=== PATIENT | male | born 1960 | race Caucasian/White ===

== ENCOUNTER → 2016-05-13 | Outpatient (CLI) | payer BC ==
--- NOTE | 2016-05-13 08:34 | CTL ---
EXAMINATION TYPE: CT Low Dose lung cancer screening DATE OF EXAM ORDERED: 05/13/2016 7:51 AM HISTORY: 56-year-old male personal history of tobacco use. Lung cancer screening CT DLP: 106.[address] CTDI: 2.7 mGy Automated exposure control for dose reduction was used. SCREENING VISIT: Baseline COMPARISON: None TECHNIQUE: Low dose computed tomography scan was performed through the chest at 1 mm thick sections a nd reconstructed images in the coronal plane at 1 mm thick sections. Low-dose radiation protocol was utilized. Coronal and sagittal reconstructions performed. CT DIAGNOSTIC QUALITY: Satisfactory FINDINGS: The heart is normal size without pericardial effusion. Aorta is normal caliber with mild atherosclerotic arch calcifications and conventional arch vessel br anching anatomy. Scattered nonenlarged mediastinal lymph nodes measuring up to 6 mm. There is also mild bilateral gyne comastia incidentally noted. There is minimal biapical pleural parenchymal scarring. Very mild centrilobular emphysema seen in the upper lungs. No consolidation or pleural effusion. No suspicious pulmonary nodule or mass. Visualized upper abdomen shows no gross abnormality. Bones: No osseous destructive process. IMPRESSION: 1. Lung RADS 1 - negative; no pulmonary nodule seen. 2. Very mild centrilobular emphysema. RECOMMENDATION: 1. Continue with annual LDCT for lung cancer screening. 2. Smoking cessation. CT LUNG RAD: Lung-Rad 1 Negative
== END | disposition home or self-care (01) ==
LOC: RADCTMAIN 07:19
PROVIDERS: ATTEND Family Medicine
DX: Z12.2 Encounter for screening for malignant neoplasm of respiratory organs (principal); J43.9 Emphysema, unspecified; Z87.891 Personal history of nicotine dependence

== ENCOUNTER → 2022-03-22 | Outpatient (CLI) | payer BC ==
--- NOTE | 2022-03-22 08:44 | CTL ---
EXAMINATION TYPE: CT Low Dose Lung DATE OF EXAM ORDERED: 03/22/2022 HISTORY: Long-term tobacco use. Lung cancer screening CT DLP: 131.[address] CTDI: 3.2 mGy Automated exposure control for dose reduction was used. SCREENING VISIT: First after baseline COMPARISON: Prior study 2016 TECHNIQUE: Low dose computed tomography scan was performed through the chest at 1 mm thick sections a nd reconstructed images in multiple planes at 1 mm and [address] DIAGNOSTIC QUALITY: Satisfactory FINDINGS: LUNG NODULES: Present, detailed below: Few scattered small nodules redemonstrated. Stable 4 x 2 mm peripheral right middle lobe nodule axial image 185. Stable 3 to 4 mm right middle lobe nodule axial image 156. No new or enlarging greater than 5 mm pulmonary nodules. LUNGS: COPD: Severity: Mild Fibrosis: Severity: Minimal Lymph nodes: No greater than 1.0 cm Other findings: None RIGHT PLEURAL SPACE: Effusion: None Calcification: None Thickening: None Pneumothorax: None LEFT PLEURAL SPACE: Effusion: None Calcification: None Thickening: None Pneumothorax: None HEART: Heart Size: Normal Coronary Calcification: Moderate Pericardial Effusion: None OTHER FINDINGS: Upper abdomen: None Bony thorax: Slight S-shaped scoliosis redemonstrated Supraclavicular region : None Other: Small degree of bilateral gynecomastia again seen. IMPRESSION: Mild emphysematous change with few small stable nodules. CT LUNG RAD AND CT CHEST RECOMMENDATION: Lung-Rad 2 Benign Appearance or Behavior: Continue annual sc reening with LDCT in 12 months. S Modifier (other clinically significant findings): None
== END | disposition home or self-care (01) ==
LOC: RADCTMAIN 07:54
PROVIDERS: ATTEND Family Medicine
DX: Z12.2 Encounter for screening for malignant neoplasm of respiratory organs (principal); J43.9 Emphysema, unspecified; R91.8 Other nonspecific abnormal finding of lung field; Z87.891 Personal history of nicotine dependence
CPT/HCPCS: 71271

== ENCOUNTER → 2023-03-31 | Outpatient (CLI) | payer BC ==
--- NOTE | 2023-03-31 08:28 | CTL ---
EXAMINATION TYPE: CT Low Dose Lung DATE OF EXAM: 03/31/2023 6:56 AM CLINICAL INDICATION:Male, 63 years old with history of F17.210 nicotine dependence; nicotine dependen ce , history of tobacco use. COMPARISON: None. TECHNIQUE: Multiple axial non-contrast scans were obtained from approximately the lung apices through the upper abdomen. Coronal and sagittal reformatted images were obtained. Low dose technique was uti lized. CT DLP: 136 mGycm, Automated exposure control for dose reduction was used. CT Contrast: Contrast used: None Oral contrast used: None FINDINGS: ======== Lack of intravenous contrast and low dose technique limits the evaluation of the vascular and soft ti ssue structures. LUNGS: No evidence of pulmonary fibrosis. No evidence of focal consolidation, pneumothorax or pleural effusion. Mild centrilobular emphysema changes throughout the lungs. Nodules: RUL: 2 mm series 3 image 55. RML: 4 mm series 3 image 163, 4 mm series 3 image 196 RLL: None. DWAIN: 3 mm series 3 image 178r LLL: None. AIRWAY: Patent and unremarkable. HEART: Size within normal limits. Mild coronary artery calcifications. MEDIASTINUM: No gross evidence of adenopathy. VASCULATURE: No aortic aneurysm. MUSCULOSKELETAL: No acute osseous abnormalities SOFT TISSUES/LYMPH NODES: Unremarkable. LOWER NECK: No significant findings. UPPER ABDOMEN: No significant findings. IMPRESSION: 1. No clinically significant pulmonary nodules. 2. Mild emphysema. CT LUNG RAD AND CT CHEST RECOMMENDATION: Lung-Rad 2 Benign Appearance or Behavior: Continue annual sc reening with LDCT in 12 months. S Modifier (other clinically significant findings): None Recommend smoking cessation (if current smoker), or continuation of smoking cessation (if prior smoke r). Annual screening for lung cancer with low-dose computed tomography is recommended in adults ages 55 to 77 years who have a 30 pack-year smoking history and currently smoke or have quit within the pa st 15 years. Screening should be discontinued once a person has not smoked for 15 years or develops a health problem that substantially limits life expectancy or the ability or willingness to have curat fly lung surgery. Lung rads 2021 [email or web address]
== END | disposition home or self-care (01) ==
LOC: RADCTMAIN 06:38
PROVIDERS: ATTEND Family Medicine
DX: Z12.2 Encounter for screening for malignant neoplasm of respiratory organs (principal); J43.2 Centrilobular emphysema; F17.210 Nicotine dependence, cigarettes, uncomplicated
CPT/HCPCS: 71271

== ENCOUNTER → 2024-04-18 | Outpatient (CLI) | payer BC ==
--- NOTE | 2024-04-18 15:21 | CTL ---
EXAMINATION TYPE: CT Low Dose Lung DATE OF EXAM ORDERED: 04/18/2024 COMPARISON: Prior study March 2023 and older studies CLINICAL INDICATION: Male, 64 years old with history of Z12.2, F17.210; PHH, Current smoker, 1 ppd x 45 years, Lung cancer screening, History of Smoking/tobacco use. TECHNIQUE: Low dose computed tomography scan was performed through the chest at 1 mm thick sections a nd reconstructed images in multiple planes at 1 mm and [address] DLP: 160.[address] CTDI: 3.8 mGy Automated exposure control for dose reduction was used. CT DIAGNOSTIC QUALITY: Satisfactory FINDINGS: LUNG NODULES: Present, detailed below: Few scattered small nodules redemonstrated. Stable 4 x 2 mm peripheral right middle lobe nodule axial image 171. Stable 3 to 4 mm right middle lobe nodule axial image 140. Stable 4 mm anterior left mid lung nodule axial image 163. No new or enlarging greater than 6 mm pulmonary nodules. LUNGS: COPD: Severity: Mild Fibrosis: Severity: Minimal Lymph nodes: No greater than 1.0 cm Other findings: None RIGHT PLEURAL SPACE: Effusion: None Calcification: None Thickening: None Pneumothorax: None LEFT PLEURAL SPACE: Effusion: None Calcification: None Thickening: None Pneumothorax: None HEART: Heart Size: Normal Coronary Calcification: Moderate Pericardial Effusion: None OTHER FINDINGS: Upper abdomen: Liver is heterogeneously hypodense suggesting diffuse fatty infiltrative hepatocellula r disease. Bony thorax: Slight S-shaped scoliosis redemonstrated Supraclavicular region : None Other: Small degree of bilateral gynecomastia again seen. IMPRESSION: Mild emphysematous change with few small stable nodules. No new or enlarging greater than [address] LUNG RAD AND CT CHEST RECOMMENDATION: Lung-Rad 2 Benign Appearance or Behavior: Continue annual sc reening with LDCT in 12 months. S Modifier (other clinically significant findings): None [facility], , 04/18/2024 3:19 PM
== END | disposition home or self-care (01) ==
LOC: RADCTMAIN 07:06
PROVIDERS: ATTEND Internal Medicine
DX: Z12.2 Encounter for screening for malignant neoplasm of respiratory organs (principal); J43.9 Emphysema, unspecified; F17.210 Nicotine dependence, cigarettes, uncomplicated; R91.8 Other nonspecific abnormal finding of lung field
CPT/HCPCS: 71271

== ENCOUNTER → 2024-04-25 | Outpatient (CLI) | payer BC ==
--- NOTE | 2024-04-25 13:41 | CA ---
Exercise Stress Test Report Name: Willy Kapoor Exam Date: 04/25/2024 09:04 Exam Location: [place] Stress Ht (in): 70 Wt (lb): 218 BSA: 2.17 Ordering Phys: Dalton Tate MD Referring Phys: JUSTICE, Technologist: Jama Kinney Age: 64 Gender: M : 1960 Procedure CPT: Indications: I20.9 Angina ICD-10 Codes: Patient History: Medications: LISINOPRIL,,,,,, AMLODIPINE,,,,,, ATORVASTATIN,,,,, Meds past 24 hrs: Pretest Chest Pain: STRESS TEST Protocol Exercise Duration (min:sec): 06:[address] Depressions (mm): Angina Score: Blake Score: Resting HR (bpm): 83 Peak HR (bpm): 131 Resting BP (mmHg): 139 / 81 Peak BP (mmHg): 209 / 78 MPHR: 157 Target HR: 133 % MPHR: 83 METS: 7.1 Total Dose: Peak Dose: Atropine: Double Product: 21008 BP Response: Stress Termination: Dyspnea Stress Symptoms: DIFFICULTY IN BREATHING Stress Summary: The patient's target heart rate was not achieved ECG ANALYSIS Resting ECG: Sinus rhythm. Normal conduction. No arrhythmias. Normal repolarization. Stress ECG: No ECG evidence of ischemia with exercise. CONCLUSIONS 1. Average exercise tolerance 2. Nondiagnostic electrocardiographic stress testing secondary to the inability to achieve 85% of maximum predicted heart rate 3. At the rate achieved there was no evidence of stress-induced ischemia Dr. Aryan Wallace MD (Electronically Signed) Final Date: 25 April 2024 13:40
== END | disposition home or self-care (01) ==
LOC: RADNMMAIN 08:06
PROVIDERS: ATTEND Internal Medicine
DX: I20.9 Angina pectoris, unspecified (principal)
CPT/HCPCS: 93017